=== PATIENT | female | born 1955 | race Caucasian/White ===

== ENCOUNTER 2016-05-30 06:45 | Emergency (ER) | payer OTHER | END 2016-05-30 09:06 | disposition home or self-care (01) | DX: R35.0 Frequency of micturition (principal); N95.2 Postmenopausal atrophic vaginitis; I48.91 Unspecified atrial fibrillation; Z79.01 Long term (current) use of anticoagulants; E78.00 Pure hypercholesterolemia, unspecified; I10 Essential (primary) hypertension; E03.9 Hypothyroidism, unspecified ==

== ENCOUNTER 2016-09-26 19:36 | Emergency (ER) | payer OTHER ==
--- NOTE | 2016-09-26 20:22 | ED Physician Documentation ---
PD HPI ABD PAIN - Stated complaint Stated Complaint: STOMACH PX - Chief complaint Chief Complaint: Abd Pain - History obtained from History obtained from: Patient - History of Present Illness Timing - onset: Yesterday Timing - duration: Days (1) Timing - details: Gradual onset, Now resolved Quality: Sharp, Pain Location: RUQ, Epigastric Radiation: Upper back Improved by: Other (time) Worsened by: Eating Associated symptoms: Nausea, Constipation. No: Vomiting, Diarrhea, Dysuria, Chest pain Similar symptoms before: No diagnosis Recently seen: Clinic (The patient has been seen by her primary and she has been put on a low fat diet and has an ultrasound later this week.) - Additional information Additional information: 60 y/o female with intermittent epigastric and right upper quadrant pain in episodes lasting 6-8 hours had an episode last night that resolved overnight and returned this morning and she was preparing to come in to the ED and her pain has now resolved. Review of Systems Constitutional: denies: Fever, Chills, Fatigue Eyes: denies: Decreased vision Ears: denies: Ear pain Nose: reports: Congestion Throat: denies: Sore throat Cardiac: denies: Chest pain / pressure, Palpitations Respiratory: denies: Dyspnea, Cough GI: reports: Abdominal Pain, Nausea, Constipation. 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 - Present Medications Home Medications: Ambulatory Orders Medication Instructions Recorded Confirmed Warfarin [Coumadin] 5 mg PO DAILY 10/25/14 05/30/16 [place]-3 Fatty Acids [Fish Oil] 850 mg PO DAILY 04/21/15 09/26/16 Vitamin E 400 unit PO DAILY 04/21/15 09/26/16 traZODone [Desyrel] 50 mg PO QPM 04/21/15 05/30/16 Atorvastatin [Lipitor] 20 mg PO QPM 05/30/16 09/26/16 Calcium Carbonate/Vitamin D3 1 each PO DAILY 05/30/16 09/26/16 [Calcium 500 + Vit D Caplet] Esomeprazole Magnesium [Nexium] 20 mg PO 05/30/16 HYDROcod/ACETAM 5/325 [[place] 5/325] 1 - 2 ea PO Q6H PRN 05/30/16 09/26/16 Levothyroxine Sodium 137 mcg PO DAILY 05/30/16 09/26/16 Metoprolol Succinate [Toprol Xl] 50 mg PO BID 05/30/16 09/26/16 Cetirizine [ZyrTEC] 10 mg PO DAILY 09/26/16 09/26/16 Losartan [Cozaar] 50 mg PO DAILY 09/26/16 09/26/16 - Allergies Allergies/Adverse Reactions: Allergies Allergy/AdvReac Type Severity Reaction Status Date / Time No Known Drug Allergies Allergy Verified 12/01/15 12:47 - Social History Does the pt smoke?: No Smoking Status: Unknown if ever smoked Does the pt drink ETOH?: No Does the pt have substance abuse?: No - Immunizations Immunizations are current?: Yes - POLST Patient has POLST: No PD ED PE NORMAL - Vitals Vital signs reviewed: Yes (hypertensive ) - General General: Alert and oriented X 3, No acute distress, Well developed/nourished - HEENT HEENT: Atraumatic, PERRL, EOMI - Neck Neck: Supple, no meningeal sign - Cardiac Cardiac: RRR, No murmur - Respiratory Respiratory: No respiratory distress, Clear bilaterally - Abdomen Abdomen: Soft, Non tender - Back Back: No CVA TTP, No spinal TTP - Derm Derm: Normal color, No rash - Extremities Extremities: No deformity, No edema - Neuro Neuro: Alert and oriented X 3, No motor deficit, No sensory deficit, Normal speech - Psych Psych: Normal mood, Normal affect Results - Vitals Vitals: Vital Signs - 24 hr 09/26/16 09/26/16 09/26/16 19:39 21:07 22:40 Temperature 36.6 C Heart Rate 83 79 72 Respiratory 18 16 16 Rate Blood Pressure 142/86 H 131/84 H 135/60 H O2 Saturation 97 96 98 Oxygen O2 Source Room air - Labs Labs: Laboratory Tests 09/26/16 09/26/16 09/26/16 20:20 20:20 20:20 WBC 5.4 RBC 4.15 L Hgb 11.4 L Hct 34.8 L MCV 83.8 MCH 27.5 MCHC 32.8 RDW 15.7 H Plt Count 300 MPV 7.6 L Neut # 2.3 Lymph # 2.3 [place] # 0.5 Eos # 0.2 Baso # 0.1 Absolute Nucleated RBC 0.00 Nucleated RBCs 0.1 PT 29.9 H INR 2.6 H Sodium 140 Potassium 4.5 Chloride 108 Carbon Dioxide 27 Anion Gap 5.0 L BUN 10 Creatinine 0.6 Estimated GFR (MDRD) 102 Glucose 93 Calcium 9.1 Total Bilirubin 0.5 AST 18 ALT 15 Alkaline Phosphatase 70 Troponin I Total Protein 7.0 Albumin 3.9 Globulin 3.1 Albumin/Globulin Ratio 1.3 Lipase 44 Urine Color Urine Clarity Urine pH Ur Specific [place] Urine Protein Urine Glucose (UA) Urine Ketones Urine Occult Blood Urine Nitrite Urine Bilirubin Urine Urobilinogen Ur Leukocyte Esterase Urine RBC Urine WBC Ur Squamous Epith Cells Urine Bacteria Ur Microscopic Review Urine Culture Comments 09/26/16 09/26/16 20:20 20:22 WBC RBC Hgb Hct MCV MCH MCHC RDW Plt Count MPV Neut # Lymph # [place] # Eos # Baso # Absolute Nucleated RBC Nucleated RBCs PT INR Sodium Potassium Chloride Carbon Dioxide Anion Gap BUN Creatinine Estimated GFR (MDRD) Glucose Calcium Total Bilirubin AST ALT Alkaline Phosphatase Troponin I < 0.04 Total Protein Albumin Globulin Albumin/Globulin Ratio Lipase Urine Color YELLOW Urine Clarity HAZY Urine pH 6.5 Ur Specific [place] 1.010 Urine Protein NEGATIVE Urine Glucose (UA) NEGATIVE Urine Ketones NEGATIVE Urine Occult Blood NEGATIVE Urine Nitrite NEGATIVE Urine Bilirubin NEGATIVE Urine Urobilinogen 0.2 (NORMAL) Ur Leukocyte Esterase SMALL H Urine RBC 0-5 Urine WBC 4-5 Ur Squamous Epith Cells RARE Squamous Urine Bacteria Few Ur Microscopic Review INDICATED Urine Culture Comments INDICATED - Rads (name of study) gb ultrasound Radiology: Prelim report reviewed (Impression: negative right upper quadrant ultrasound. ), EMP read indepedently, See rad report PD MEDICAL DECISION MAKING - ED course Complexity details: reviewed old records, reviewed results, re-evaluated patient , considered differential, d/w patient ED course: 60 y/o female with typical gallbladder symptoms has resolved this episode and has a non-tender gallbladder without evidence of stone. (there may be a small polyp). The remainder of her work up is unremarkable, no sign of obstruction or inflammation, and she will follow up with Dr. Ocampo for a referral for HIDA scan. Departure - Departure Disposition: 01 Home, Self Care Clinical Impression: Gallbladder attack Condition: Stable Instructions: Scan HIDA Follow-Up: Sylvie Ocampo DO [Primary Care Provider] - Comments: Today your gallbladder ultrasound did not show typical stones. Your symptoms are consistent with gallbladder disease and a follow up HIDA scan should be considered. Follow up with Dr. Ocampo to schedule this. Discharge Date/Time: 09/26/16 22:40
[2016-09-26 20:28] LABS: BILIRUBIN,URINE NEGATIVE (NEGATIVE); PH,URINE 6.5 PH (5.0-7.5)
[2016-09-26 20:32] LABS: UA w/ MICROSCOPIC CHARGE YES
[2016-09-26 20:41] LABS: BASOPHILS # (AUTO) 0.1 10^3/uL (0.0-0.1); BASOPHILS % (AUTO) 1.8 %; EOSINOPHILS # (AUTO) 0.2 10^3/uL (0.0-0.7); EOSINOPHILS % (AUTO) 3.8 %; HCT - HEMATOCRIT 34.8 % (37.0-47.0); HGB - HEMOGLOBIN 11.4 g/dL (12.0-16.0); LYMPHOCYTES # (AUTO) 2.3 10^3/uL (1.5-3.5); LYMPHOCYTES % (AUTO) 42.6 %; MEAN CORPUSCULAR HEMOGLOBIN 27.5 pg (27.0-31.0); MEAN CORPUSCULAR HGB CONC 32.8 g/dL (32.0-36.0); MEAN CORPUSCULAR VOLUME 83.8 fL (81.0-99.0); MEAN PLATELET VOLUME 7.6 fL (7.9-10.8); MONOCYTES # (AUTO) 0.5 10^3/uL (0.0-1.0); MONOCYTES % (AUTO) 8.4 %; NEUTROPHILS # (AUTO) 2.3 10^3/uL (1.5-6.6); NEUTROPHILS % (AUTO) 43.4 %; NUCLEATED RED BLOOD CELLS AUTO 0.1 /100WBC; RED BLOOD COUNT 4.15 10^6/uL (4.20-5.40); RED CELL DISTRIBUTION WIDTH 15.7 % (12.0-15.0); UNCORRECTED WHITE BLOOD COUNT 5.4 x10^3/uL; WHITE BLOOD COUNT 5.4 x10^3/uL (4.8-10.8)
[2016-09-26 20:51] LABS: ALBUMIN/GLOBULIN RATIO 1.3 (1.0-2.2); BILIRUBIN,TOTAL 0.5 mg/dL (0.2-1.0); CALCIUM 9.1 mg/dL (8.5-10.3); CREATININE 0.6 mg/dL (0.4-1.0); POTASSIUM 4.5 mmol/L (3.5-5.0)
[2016-09-26 20:52] LABS: UR CULTURE IF IND INDICATED
[2016-09-26 20:55] LABS: INR 2.6 (0.8-1.2); PT - PROTHROMBIN TIME 29.9 secs (9.9-12.6)
--- NOTE | 2016-09-26 22:22 | Ultrasound Preliminary Report ---
Exam: US Abdomen Limited IMPRESSION: Negative right upper quadrant ultrasound. [facility] SITE ID: [id number]
--- NOTE | 2016-09-26 22:24 | Ultrasound Report ---
EXAM: ABDOMEN ULTRASOUND LIMITED, RUQ EXAM DATE: 09/26/2016 09:58 PM. CLINICAL HISTORY: RUQ pain episodes. COMPARISON: None. TECHNIQUE: Real-time scanning was performed with static images obtained. FINDINGS: Liver: Submitted images of liver demonstrate no focal lesions. Main portal vein flow: Hepatopetal. Gallbladder: No stones, wall thickening, or sonographic Espinoza's sign. There may be a small gallbladd er wall polyp. Biliary System: CBD measures 4 mm. No intrahepatic or extrahepatic ductal dilatation. Other: The visualized pancreas and right kidney are unremarkable. IMPRESSION: Negative right upper quadrant ultrasound. [facility] Referring Provider Line: [phone] SITE ID: [id number]
[2016-09-26 22:41] VITALS: BP 135/60
== END 2016-09-26 22:40 | disposition home or self-care (01) ==
LOC: ED 19:36
DX: K82.9 Disease of gallbladder, unspecified (principal); R11.0 Nausea; K59.00 Constipation, unspecified; I10 Essential (primary) hypertension; I48.91 Unspecified atrial fibrillation; Z79.01 Long term (current) use of anticoagulants; E03.9 Hypothyroidism, unspecified
CPT/HCPCS: 36415; 76705; 80053; 81001; 81003; 83690; 84484; 85025; 85610; 87086; 99283; 99284

== ENCOUNTER 2017-12-04 22:04 | Emergency (ER) | payer OTHER ==
[2017-12-04 23:02] LABS: BILIRUBIN,URINE NEGATIVE (NEGATIVE); GLUCOSE, URINE (UA) NEGATIVE (NEGATIVE); KETONES,URINE (UA) 15 mg/dL (NEGATIVE); LEUKOCYTE ESTERASE, URINE MODERATE (NEGATIVE); NITRITE,URINE POSITIVE (NEGATIVE); OCCULT BLOOD,URINE LARGE (NEGATIVE); PROTEIN,URINE >=300 mg/dL (NEGATIVE); UROBILINOGEN,URINE 4 E.U./dL (NORMAL)
[2017-12-04 23:05] LABS: CLARITY,URINE BLOODY (CLEAR)
[2017-12-04 23:06] LABS: BACTERIA,URINE Few /HPF (None Seen); RBC,URINE TNTC /HPF (0-5); SQUAMOUS EPITHELIAL CELL,UR FEW Squamous (<= Few)
--- NOTE | 2017-12-04 23:13 | ED Physician Documentation ---
History of Present Illness - Stated complaint Stated Complaint: FEMALE - Chief complaint Chief Complaint: General - History obtained from History obtained from: Patient - Additonal information Additional information: 62-year-old female presents the emergency department with increasing dysuria and hematuria with frequency and suprapubic pain. The patient does have prior episodes of urinary tract infections and this is similar to those episodes. The patient denies fevers, chills, flank pain. The patient does report pain in her lower back but typically has lower back pain. The patient denies vomiting, diarrhea, chest pain, shortness of breath or vaginal discharge. No other associated symptoms. No relieving factors Review of Systems Constitutional: denies: Fever, Chills Eyes: denies: Discharge Nose: denies: Congestion Cardiac: denies: Chest pain / pressure Respiratory: denies: Dyspnea GI: denies: Abdominal Pain : reports: Dysuria, Frequency, Hematuria Skin: denies: Laceration (s) Musculoskeletal: denies: Neck pain Neurologic: denies: Generalized weakness Immunocompromised: denies: Chemotherapy PD PAST MEDICAL HISTORY - Past Medical History Cardiovascular: Hypertension, High cholesterol, Atrial fibrillation Endocrine/Autoimmune: HyPOthyroidism, Other : Frequency, Other HEENT: Chronic vision loss Musculoskeletal: Osteoarthritis - Past Surgical History Past Surgical History: Yes 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 - Present Medications Home Medications: Ambulatory Orders Medication Instructions Recorded Confirmed Warfarin [Coumadin] 5 mg PO DAILY 10/25/14 05/30/16 [place]-3 Fatty Acids [Fish Oil] 850 mg PO DAILY 04/21/15 09/26/16 Vitamin E 400 unit PO DAILY 04/21/15 09/26/16 Atorvastatin [Lipitor] 20 mg PO QPM 05/30/16 09/26/16 Calcium Carbonate/Vitamin D3 1 each PO DAILY 05/30/16 09/26/16 [Calcium 500 + Vit D Caplet] Levothyroxine Sodium 137 mcg PO DAILY 05/30/16 09/26/16 Metoprolol Succinate [Toprol Xl] 100 mg PO BID 05/30/16 09/26/16 Cetirizine [ZyrTEC] 10 mg PO DAILY 09/26/16 09/26/16 Losartan [Cozaar] 50 mg PO DAILY 09/26/16 09/26/16 Cephalexin [Keflex] 500 mg PO BID #14 capsule 12/04/17 Pantoprazole Sodium [Protonix] 40 mg PO 12/04/17 - Allergies Allergies/Adverse Reactions: Allergies Allergy/AdvReac Type Severity Reaction Status Date / Time No Known Drug Allergies Allergy Verified 12/04/17 22:16 - Social History Does the pt smoke?: No Smoking Status: Unknown if ever smoked Does the pt drink ETOH?: No Does the pt have substance abuse?: No - Immunizations Immunizations are current?: Yes - POLST Patient has POLST: No PD ED PE NORMAL - General General: Alert and oriented X 3, No acute distress, Well developed/nourished - HEENT HEENT: Atraumatic, PERRL, EOMI, Ears normal - Abdomen Abdomen: Soft, Non tender, Non distended - Back Back: No CVA TTP - Derm Derm: Normal color - Extremities Extremities: No deformity - Neuro Neuro: Alert and oriented X 3, Normal speech - Psych Psych: Normal mood Results - Vitals Vitals: Vital Signs - 24 hr 12/04/17 12/05/17 22:14 00:05 Temperature 36.3 C L Heart Rate 52 L 56 L Respiratory 16 16 Rate Blood Pressure 145/83 H 139/76 H O2 Saturation 95 99 Oxygen O2 Source Room air - Labs Labs: Laboratory Tests 12/04/17 12/04/17 22:43 23:30 PT 22.1 H INR 2.0 H APTT 31.0 Urine Color RED/BLOODY Urine Clarity BLOODY Urine pH 7.0 Ur Specific [place] 1.010 Urine Protein >=300 H Urine Glucose (UA) NEGATIVE Urine Ketones 15 H Urine Occult Blood LARGE H Urine Nitrite POSITIVE H Urine Bilirubin NEGATIVE Urine Urobilinogen 4 H Ur Leukocyte Esterase MODERATE H Urine RBC TNTC H Urine WBC 6-10 H Ur Squamous Epith Cells FEW Squamous Urine Bacteria Few Ur Microscopic Review INDICATED Urine Culture Comments INDICATED Urine HCG, Qual Cancelled PD MEDICAL DECISION MAKING - ED course ED course: The patient appears appropriate for discharge home in ongoing outpatient management, there is no evidence of pyelonephritis or sepsis on physical examination. The patient is on Coumadin. I discussed with her the possibility of her INR being elevated. The patient is aware of this and reports that she will follow up with her Coumadin clinic nurse in the next 3 days for an INR recheck. I discussed signs of worsening I recommended returning to the emergency department immediately for any worsening or concerns. - Sepsis Event Vital Signs: Vital Signs - 24 hr 12/04/17 12/05/17 22:14 00:05 Temperature 36.3 C L Heart Rate 52 L 56 L Respiratory 16 16 Rate Blood Pressure 145/83 H 139/76 H O2 Saturation 95 99 Oxygen O2 Source Room air Departure - Departure Disposition: 01 Home, Self Care Clinical Impression: Acute cystitis with hematuria Condition: Good Instructions: ED UTI Cystitis Female Follow-Up: SHAYNA ZAMBRANO MD [Primary Care Provider] - Within 1 week Prescriptions: Cephalexin [Keflex] 500 mg PO BID #14 capsule Comments: Please return to the ED for worsening symptoms or any concerns Discharge Date/Time: 12/05/17 00:05
[2017-12-04] MEDS: cephALEXin 250 MG CAPSULE PO STA (23:19)
[2017-12-04 23:41] LABS: PT - PROTHROMBIN TIME 22.1 secs (9.9-12.6)
[2017-12-05 00:18] VITALS: BP 139/76
== END 2017-12-05 00:05 | disposition home or self-care (01) ==
LOC: ED 22:04
DX: N30.01 Acute cystitis with hematuria (principal); I10 Essential (primary) hypertension; I48.91 Unspecified atrial fibrillation; Z79.01 Long term (current) use of anticoagulants; M19.90 Unspecified osteoarthritis, unspecified site
CPT/HCPCS: 36415; 81001; 85610; 85730; 87086; 99283; A9270; 81003; 81025

== ENCOUNTER 2017-12-12 13:59 | Outpatient (CLI) | payer OTHER | END 2017-12-12 14:00 | disposition home or self-care (01) | LOC: SC 13:59 | PROVIDERS: ATTEND Internal Medicine Pulmonary Disease | DX: G47.30 Sleep apnea, unspecified (principal); G47.10 Hypersomnia, unspecified; R06.83 Snoring; G47.8 Other sleep disorders | CPT/HCPCS: 99203; 99212 ==

== ENCOUNTER 2017-12-31 07:46 | Outpatient (CLI) | payer OTHER ==
--- NOTE | 2017-12-31 13:58 | MRI Report ---
Procedure Date: 12/31/2017 Accession Number: [id number] / [id number] Procedure: MRI - Lumbar Spine W/O CPT Code: FULL RESULT: EXAM: MRI LUMBAR SPINE WITHOUT CONTRAST EXAM DATE: 12/31/2017 08:51 AM. CLINICAL HISTORY: Low back pain post hip surgery. COMPARISON: None. TECHNIQUE: Multiplanar, multisequence T1-weighted and fluid-sensitive sequences of the lumbar spine from T12 to S1 without contrast. Other: None. FINDINGS: Spinal Canal: The conus terminates at L1-L2. The conus medullaris and cauda equina are unremarkable. Alignment: There is a focal flexion deformity at L1-L2. There is a 22 degree dextroscoliosis at L2-L3. Bone Marrow: Five [id number] lumbar vertebral bodies are assumed. There is Modic type I change at the L1-L2 and T12-L1 endplates. There is mild Modic type I and II change at the L4-L5 endplates. Disk Levels/Facets: T12-L1: There are circumferential osteophytes causing mild canal and foraminal narrowing. L1-L2: Severe disk desiccation and loss of disk height. There are circumferential osteophytes. There is mild facet joint osteoarthritis. The findings cause mild canal narrowing and moderate bilateral foraminal narrowing. L2-L3: There is severe disk desiccation with circumferential osteophyte formation causing minimal canal narrowing. There is moderate left foraminal narrowing. L3-L4: There is disk desiccation and loss of disk height. There are circumferential osteophytes with mild facet joint osteoarthritis and ligamentum flavum redundancy causing mild canal narrowing. There is moderate right and left foraminal narrowing. A facet joint osteophyte anteriorly displaces the left L3 nerve root. L4-L5: There is disk desiccation and loss of disk height. There are circumferential osteophytes with moderate facet joint osteoarthritis and ligamentum flavum redundancy causing mild canal narrowing. There is moderate bilateral foraminal narrowing. Osteophytes superiorly displaced the right L4 nerve root within the foramen. L5-S1: There is a central disk extrusion which extends into the right neural foramen. There is moderate bilateral facet joint osteoarthritis. The findings cause mild canal narrowing. The right L5 nerve root is contacted by disk within the neural foramen. Musculature: Normal. No edema or fatty atrophy. Other: The partially visualized retroperitoneum is unremarkable. IMPRESSION: 1. There is a flexion deformity at L1-L2, and a 22-degree dextroscoliosis at L2-L3. 2. Multilevel disk and facet joint degeneration with foraminal narrowing. 3. L2-L3: Minimal canal narrowing. Moderate left foraminal narrowing. 4. L3-L4: Moderate right and left foraminal narrowing. An osteophyte appears to contact the left L3 nerve root. Mild canal narrowing. 5. L4-L5: Moderate bilateral foraminal narrowing. Osteophytes superiorly displace the right L4 nerve root within the foramen. There is mild canal narrowing. 6. L5-S1: Mild canal narrowing. Right L5 nerve root contacted by disk within the neural foramen. Comment: The following findings are so common in adults without low back pain that while we report their presence, they must be interpreted with caution and in the context of the clinical situation. (Reference Nohemik et al, Spine 2001) Prevalence of findings in patients without low back pain: Disk degeneration (any evidence): 92% Disk desiccation/T2 signal loss: 83% Disk height loss: 56% Disk bulge: 64% Disk protrusion: 32% Annular tear/high intensity zone: 38% [facility]
== END 2017-12-31 07:47 | disposition home or self-care (01) ==
LOC: DI 07:46
PROVIDERS: ATTEND Internal Medicine
DX: M51.36 Other intervertebral disc degeneration, lumbar region (principal); M48.061 Spinal stenosis, lumbar region without neurogenic claudication; M41.86 Other forms of scoliosis, lumbar region; M25.78 Osteophyte, vertebrae
CPT/HCPCS: 72148

== ENCOUNTER 2018-01-27 19:34 | Outpatient (CLI) | payer OTHER | END 2018-01-27 19:35 | disposition home or self-care (01) | LOC: SC 19:34 | PROVIDERS: ATTEND Internal Medicine Pulmonary Disease | DX: G47.33 Obstructive sleep apnea (adult) (pediatric) (principal); I48.91 Unspecified atrial fibrillation | CPT/HCPCS: 95810 ==

== ENCOUNTER 2018-03-08 14:00 | Outpatient (CLI) | payer OTHER | END 2018-03-08 14:01 | disposition home or self-care (01) | LOC: SC 14:00 | PROVIDERS: ATTEND Nurse Practitioner Family | DX: G47.33 Obstructive sleep apnea (adult) (pediatric) (principal) | CPT/HCPCS: 99212; 99214 ==

== ENCOUNTER 2018-03-20 16:33 | Outpatient (CLI) | payer OTHER ==
--- NOTE | 2018-03-21 13:57 | MRI Report ---
Reason: POLYNEUROPATHY,UNSPECIFIED Procedure Date: 03/20/2018 Accession Number: [id number] / [id number] Procedure: MRI - Ankle RT W/O CPT Code: FULL RESULT: EXAM: RIGHT ANKLE/HINDFOOT MRI WITHOUT CONTRAST EXAM DATE: 03/20/2018 05:16 PM. CLINICAL HISTORY: Polyneuropathy, unspecified. COMPARISON: None. TECHNIQUE: Multiplanar, multisequence T1-weighted and fluid-sensitive sequences of the ankle/hindfoot without contrast. Other: None. FINDINGS: Bones: No fractures or subluxations. No marrow edema. No bone lesions. Articular Cartilage: Unremarkable. Ligaments: The anterior and posterior tibiofibular, anterior and posterior talofibular, and calcaneofibular ligaments are intact. The deep and superficial deltoid and spring ligaments are intact. Anterior Tendons: The tibialis anterior, extensor hallucis longus, and extensor digitorum longus tendons are unremarkable. In particular, MRI marker has been placed over the dorsal aspect of the ankle, located anterior to the anterior tibialis and the extensor hallucis longus tendon. No tenosynovitis or tendinitis is noted. No adjacent soft tissue swelling. Medial Tendons: The tibialis posterior, flexor digitorum longus, and flexor hallucis longus tendons are unremarkable. Lateral Tendons: The peroneus brevis and longus are unremarkable. Achilles Tendon: Achilles tendon per se is unremarkable. There is some edematous changes seen in the fat anterior to the Achilles tendon on series 501 image 15. Musculature: No edema or fatty atrophy. Other: No effusions. The contents of the sinus tarsi and tarsal tunnel are unremarkable. No plantar fasciitis. The subcutaneous tissues are unremarkable. IMPRESSION: 1. No fractures, no erosive or destructive changes. 2. Tendinitis is seen around the Achilles anteriorly. Achilles tendon per se is normal. 3. No abnormality seen and the extensor hallucis longus and tibialis anterior tendons, immediately adjacent to the MRI marker placed at the area of the patient's pain. 4. Collateral ligament complexes appear normal. [facility] MUSCULOSKELETAL RADIOLOGY SECTION
== END 2018-03-20 16:34 | disposition home or self-care (01) ==
LOC: DI 16:33
PROVIDERS: ATTEND Internal Medicine
DX: G62.9 Polyneuropathy, unspecified (principal); M76.61 Achilles tendinitis, right leg

== ENCOUNTER 2018-11-13 14:51 | Outpatient (CLI) | payer OTHER | END 2018-11-13 14:52 | disposition home or self-care (01) | LOC: SC 14:51 | PROVIDERS: ATTEND Nurse Practitioner Family | DX: G47.33 Obstructive sleep apnea (adult) (pediatric) (principal) | CPT/HCPCS: 99212; 99214 ==

== ENCOUNTER 2018-12-22 20:34 | Outpatient (CLI) | payer OTHER | END 2018-12-22 20:35 | disposition home or self-care (01) | LOC: SC 20:34 | PROVIDERS: ATTEND Internal Medicine Pulmonary Disease | DX: G47.33 Obstructive sleep apnea (adult) (pediatric) (principal); I48.91 Unspecified atrial fibrillation; E66.9 Obesity, unspecified; Z68.31 Body mass index [BMI] 31.0-31.9, adult | CPT/HCPCS: 95810 ==

== ENCOUNTER 2019-01-04 10:50 | Outpatient (CLI) | payer OTHER ==
[2019-01-04 11:51] VITALS: BP 112/78
--- NOTE | 2019-01-04 11:51 | SLEEP CARE CONSULTATION ---
Information from patient questionnaire entered by Carola Vásquez. I have reviewed and concur with the information entered by Carola Vásquez. This document represents the service I personally performed and the decisions made by me, Spring Johnson RN, MSN, WATER POLLUTION SPECIALIST. History of Present Illness Initial [place] Sleepiness Scale score: 6 Current [place] Sleepiness Scale score: 5 Additional HPI information: KAYLEIGH QUIGLEY returns for follow up of the recently performed polysomnography. The patient was informed of the following polysomnography findings found in study section. I explained the pathophysiology behind obstructive sleep apnea. We then spent quite a bit of time discussing different treatment options. For mild obstructive sleep apnea, surgery and oral appliance are alternatives to nasal CPAP therapy but in moderate or severe cases, nasal CPAP is the most effective and reliable treatment. I reviewed the impact of weight changes on sleep apnea and strongly recommended losing weight. After some discussion, the patient opted to go with the nasal CPAP therapy. Nasal autoCPAP set at [id number] will be ordered with rationale explained. A manual titration study will be ordered if unable to find optimal pressure with office adjustments. I explained how CPAP machine works with sample devices RespirPacket Digital Dreamstation and LightUp [id number] and what to expect when using the machine. Using CPAP every night in order to get used to it was emphasized. Patient advised to put CPAP mask on before getting into bed so as not to fall asleep without CPAP. To assist acclimation to CPAP use, it could also be used for a short time during day while reading or watching TV. The patient was instructed to call the CPAP supplier to discuss any mechanical problem that may occur. If the mask given is uncomfortable or is difficult to keep on through the night even with adjustment, contact the CPAP supplier as many will replace with another mask style if notified before 30 days. If snoring or perceives is not getting enough air or too much air from the machine, notify this office. [facility] patient education PAP tips reviewed and given to patient. Patient counseled not drink alcohol less than 4 hours before bedtime as it can increase snoring and apnea. Patient was cautioned about risks of drowsy driving until sleepiness symptoms resolve. Patient denies drowsy driving. Sleep Study - Polysomnography Polysomnography findings: The quality of the study is good. The patient had slightly reduced sleep efficiency a few prolonged awakenings during the night. The sleep architecture was abnormal for sleep fragmentation and reduced amount of time spent in slow wave sleep (N3). Respiratory monitoring showed severe obstructive sleep apnea-hypopnea (AHI = 58.4) associated with frequent arousals, oxyhemoglobin desaturation and mild hypoxia ([place] oxygen saturation of 81%). The respiratory events occurred independently of sleep stage and body position. (supine AHI = 62.3; nonsupine = 53.15). Snore was moderate to loud in intensity. There was no periodic leg movement of sleep. Cardiac rhythm was atrial fibrillation. No abnormal behavior (parasomnia) observed during the night. Allergies and Home Medications Known drug allergies: No Home medication list reviewed: Yes Allergy and home medication list: Synthroid 137mcg tab one daily Atorvastatin 20mg tab one daily Metoprolol 100mg tab two twice daily Warfarin 5.5mg tab one daily Losartan Potassium 25mg tab one twice daily Lexapro 10mg tab one daily Protonix 40mg tab one daily Zyrtec 10mg tab one daily Melatonin 6mg tab one daily Turmeric Tab one daily Review of Systems Review of systems same as previous: Yes (denies any changes) Physical Exam Blood Pressure: 112/78 Cuff size: long Heart Rate: 93 O2 Saturation: 99 Height: 5 ft 9 in Weight (kg): 106.322 kg Body Mass Index: 34.6 BMI Classification: Class 1 Impression and Plan 1. Obstructive Sleep Apnea-Hypopnea Syndrome, severe, with lowest oxygen saturation of 81%. Obviously this is the cause of the patients symptoms of unrefreshed sleep, and excessive daytime sleepiness. Positive pressure therapy could benefit her atrial fibrillation, hypertension, depression and gerd. As mentioned above, the patient will be started on nasal autoCPAP therapy with pressure set at 4-15 cmH2O. A manual titration study will be completed if unable to find optimal treatment pressure with office adjustments. Compliance guidelines also reviewed. A copy of compliance guidelines will be given for reference at check out. Until CPAP is started some apnea risk can be reduced with sleeping with head of bed elevated 30-40 degrees. 2. Atrial fibrillation, patient currently sees gas jockey Dr. Randolph, at [facility] for treatment. Copies of tracings printed by Dr. Gallego will be sent with a copy of this report as requested by patient. * Nasal auto CPAP therapy, pressure at 4-15 cm H2O. * Attempt to lose weight. * Avoid alcohol consumption near bedtime. * The patient is again cautioned about driving until sleepiness completely resolves. * Copy of this report and arrhythmia tracings to Dr. Randolph. * Return one month after CPAP obtained. I will assess response to therapy and compliance at that time. I spent 100% of this 30 minute visit face to face with the patient with greater than 50% of this was spent time counseling the patient and coordination of care.
== END 2019-01-04 10:51 | disposition home or self-care (01) ==
LOC: SC 10:50
PROVIDERS: ATTEND Nurse Practitioner Family
DX: G47.33 Obstructive sleep apnea (adult) (pediatric) (principal); I48.91 Unspecified atrial fibrillation
CPT/HCPCS: 99212; 99214

== ENCOUNTER 2019-03-26 15:30 | Outpatient (CLI) | payer OTHER ==
[2019-03-26 16:12] VITALS: BP 122/80
--- NOTE | 2019-03-26 16:12 | SLEEP CARE CONSULTATION ---
Information from patient questionnaire entered by Carola Vásquez. I have reviewed and concur with the information entered by Carola Vásquez. This document represents the service I personally performed and the decisions made by me, Spring Johnson, RN, MSN, COBBLER SOLE. History of Present Illness Previous diagnosis: Moderate, Obstructive Sleep Apnea-Hypopnea Syndrome AHI: 28.2 Reason for follow up: first compliance Equipment type: CPAP Equipment obtained from: [employer] Mask style: Full face Mask brand: Resmed (F20 air fit) Backup mask available: No (keep current mask when replaced as a spare) Last cushion change: a month ago CPAP Compliance Data - Data Reviewed with Patient Average duration of nightly device use: 5.1 Compliance rate %: 76.7 Current pressure setting (cmH2O): 4-15 Humidity settin Heated hose settin Average residual AHI: 3.4 Average large leak: 1 min 26 sec Subjective Patient concerns: reports: nasal congestion (chronic and less with CPAP use ), dry mouth, nose, throat (occasional weekly ). denies: aerophagia, mask discomfort, air blowing in eyes, mask leak noise, condensation in mask/hose, epistaxis Observed to snore while using device: No Current pressure setting perceived as: comfortable On therapy, patient: reports: sleeping better, awakening more refreshed, being more awake and alert during the day, more rested overall. denies: drowsiness while driving Initial [place] Sleepiness Scale score: 6 Current [place] Sleepiness Scale score: 3 Allergies and Home Medications Known drug allergies: No Home medication list reviewed: Yes Allergy and home medication list: Synthroid 137mcg tab one daily Atorvastatin 20mg tab one daily Metoprolol 100mg tab two twice daily eliquis bid Losartan Potassium 25mg tab one twice daily Protonix 40mg tab one daily Zyrtec 10mg tab one daily Melatonin 6mg tab one daily Turmeric Tab one daily Review of Systems Review of systems same as previous: Yes Physical Exam Blood Pressure: 122/80 Cuff size: long Heart Rate: 86 O2 Saturation: 97 Height: 5 ft 9 in Weight: 238 lb 12.8 oz Body Mass Index: 35.2 BMI Classification: Obesity Class 2 Impression and Plan 1. Obstructive Sleep Apnea-Hypopnea Syndrome, severe, with good treatment compliance and good apnea control. On CPAP therapy, the patient has better sl eep quality and is more rested overall. I will adjust her pressure to start at the mean pressure of 9cmH20 to [id number]. She is hoping to lose about 50 pounds. Thus I discussed how her weight loss will reduce her pressure requirements and symptoms to report. For oral dryness, I showed her how to adjust humidity and heated hose on sample device and discussed rationale. Printed instructions given. She is pulling off mask in late morning to take her thyroid pill. Thus she is advised to put her mask back on as there is more REM in later sleep with higher risk of apnea. In addition, maximum benefit is obtained with use of CPAP with all sleep. The next goal is to have 7-8 hours of sleep with CPAP. Patient's apnea severity and rationale for treatment to reduce apnea, improve sleep quality and reduce cardiovascular and cerebrovascular events was reviewed. I also reviewed the benefit of consistent device use of CPAP for her hypertension, arrhythmia, depression/anxiety. If unable to use CPAP due to no electricity or ill, she is advised to elevate head of bed 30-40 degrees to decrease some apnea risk. * Change CPAP pressure to 9-15 cmH2O * Adjust humidity and heated hose. * Use CPAP with all sleep. * Notify me if snoring with mask or feeling that the pressure is too much or too little * Attempt to lose weight * Return for follow up in 6 months , or sooner if concerns arise I spent 100% of this 30 minute visit face to face with the patient with greater than 50% of this was spent time counseling the patient and coordination of care.
== END 2019-03-26 15:31 | disposition home or self-care (01) ==
LOC: SC 15:30
PROVIDERS: ATTEND Nurse Practitioner Family
DX: G47.33 Obstructive sleep apnea (adult) (pediatric) (principal); E66.9 Obesity, unspecified; Z68.35 Body mass index [BMI] 35.0-35.9, adult
CPT/HCPCS: 99212; 99214

== ENCOUNTER 2019-11-29 14:31 | Outpatient (CLI) | payer OTHER ==
--- NOTE | 2019-11-29 15:35 | SLEEP CARE CONSULTATION ---
Information from patient questionnaire entered by Arely Chao. I have reviewed and concur with the information entered by Arely Chao. This document represents the service I personally performed and the decisions made by me, Spring Johnson, RN, MSN, LAUNDROMAT MANAGER. History of Present Illness Service Date and Time: 11/29/2019 1431 Previous diagnosis: Moderate, Obstructive Sleep Apnea-Hypopnea Syndrome AHI: 28.2 Reason for follow up: other (8 month with pressure change) Equipment type: CPAP Equipment obtained from: [employer] (getting supplies as needed.) Mask style: Full face Backup mask available: Yes (old mask ) Last cushion change: last month [facility] sleep [facility]: Yes [facility] Type of Sleep Study: Polysomnography HPI additional information: The oral dryness resolved with adjustment of humidity. She noted no difference with pressure change. She has noted less fast heart rate episodes since CPAP. 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 denies: aerophagia, mask discomfort, air blowing in eyes, mask leak noise, condensation in mask/hose, dry mouth, nose, throat, epistaxis Observed to snore while using device: No Current pressure setting perceived as: comfortable On therapy, patient: reports: awakening more refreshed. denies: drowsiness while driving Initial [place] Sleepiness Scale score: 6 Current [place] Sleepiness Scale score: 5 Allergies and Home Medications Known drug allergies: No Home medication list reviewed: No (no changes ) Review of Systems Review of systems same as previous: Yes Physical Exam Blood Pressure: 120/90 Cuff size: long Heart Rate: 72 O2 Saturation: 98 Height: 5 ft 9 in Weight: 245 lb (gained 7 pounds ) Body Mass Index: 36.1 BMI Classification: Obese Impression and Plan 1. Obstructive Sleep Apnea-Hypopnea Syndrome, moderate, with good treatment compliance and apnea control. On CPAP therapy, the patient has better sleep quality and is more rested overall. Nasal congestion can be reduced with high CPAP humidity as already done. Saline nasal spray can also be used prior to CPAP to clear nasal secretions and wash off any nasal allergens to facilitate nasal breathing or she can use her [place] . In addition, a steamy shower before bed will often assist nasal drainage and wash off body allergens to reduce allergy response. To obtain maximum benefit of treatment she is advised to put mask back after the bathroom as there is more REM in later sleep with higher risk of apnea. Since patient has more severe apnea in supine position, patient advised to avoid supine sleep with pillow positioning if unable to use CPAP while ill or if without electricity to reduce apnea risk as well as raise head of bed 30-40 degrees. Patient gained instead of losing weight as she planned. I again reviewed how weight affects her apnea risk and health. She was advised to fazal tim to strive to lose weight and consider a diet consultation if unable to achieve. This referral can be obtained from her PCP. I also discussed how her CPAP pressure requirements will reduce with weight loss an symptoms to report for further pressure adjustment with weight loss. Patient's apnea severity and rationale for treatment to reduce apnea, improve sleep quality and reduce cardiovascular and cerebrovascular events was reviewed. I also reviewed the benefit of consistent device use of CPAP for hypertension, arrhythmia. * Continue auto CPAP pressure at 9-15 cmH2O * Implement methods to reduce nasal congestion. * Use CPAP with all sleep * Notify me if snoring with mask or feeling that the pressure is too much or too little * Attempt to lose weight * Call this office if any problems using CPAP * Return for follow up in 1 year , or sooner if concerns arise Visit Type: In Office Time Spent with Patient (minutes): 27 Provider Statement: I spent 100% of the Face to Face Visit with the patient with greater than 50% spent counseling the patient and coordination of care.
[2019-11-29 15:36] VITALS: BP 120/90
== END 2019-11-29 14:32 | disposition home or self-care (01) ==
LOC: SC 14:31
PROVIDERS: ATTEND Nurse Practitioner Family
DX: G47.33 Obstructive sleep apnea (adult) (pediatric) (principal); E66.9 Obesity, unspecified; Z68.36 Body mass index [BMI] 36.0-36.9, adult
CPT/HCPCS: 99212; 99214

== ENCOUNTER 2019-12-24 04:17 | Outpatient (CLI) | payer OTHER | END 2019-12-24 04:18 | disposition critical access hospital (66) | LOC: EMS 04:17 | PROVIDERS: ATTEND Surgery | DX: R45.1 Restlessness and agitation (principal); R03.0 Elevated blood-pressure reading, without diagnosis of hypertension | CPT/HCPCS: A0425; A0429 ==

== ENCOUNTER 2019-12-24 04:35 | Emergency (ER) | payer OTHER ==
[2019-12-24 05:13] LABS: BASOPHILS # (AUTO) 0.1 10^3/uL (0.0-0.1); EOSINOPHILS # (AUTO) 0.2 10^3/uL (0.0-0.7); EOSINOPHILS % (AUTO) 3.1 %; HGB - HEMOGLOBIN 13.5 g/dL (12.0-16.0); LYMPHOCYTES # (AUTO) 1.8 10^3/uL (1.5-3.5); LYMPHOCYTES % (AUTO) 30.6 %; MEAN CORPUSCULAR HEMOGLOBIN 30.8 pg (27.0-31.0); MEAN CORPUSCULAR HGB CONC 33.8 g/dL (32.0-36.0); MEAN CORPUSCULAR VOLUME 90.9 fL (81.0-99.0); MEAN PLATELET VOLUME 9.4 fL (7.9-10.8); MONOCYTES # (AUTO) 0.4 10^3/uL (0.0-1.0); MONOCYTES % (AUTO) 6.1 %; NEUTROPHILS # (AUTO) 3.4 10^3/uL (1.5-6.6); NEUTROPHILS % (AUTO) 58.9 %; PLT - PLATELET COUNT 254 10^3/uL (130-450); RED BLOOD COUNT 4.39 10^6/uL (4.20-5.40); RED CELL DISTRIBUTION WIDTH 13.1 % (12.0-15.0); WHITE BLOOD COUNT 5.7 x10^3/uL (4.8-10.8)
[2019-12-24] MEDS ORDERED: SODIUM CHLORIDE 0.9% 1,000 ML IV STA (05:28)
--- NOTE | 2019-12-24 05:31 | ED Physician Documentation ---
History of Present Illness - Stated complaint Stated Complaint: HIGH BP, INSOMINIA, AFIB - Chief complaint Chief Complaint: Cardiac - History obtained from History obtained from: Patient - History of Present Illness Timing: Today - Additonal information Additional information: 64-year-old female with a history of hypertension and atrial fibrillation had a night last night of agitation she was unable to sleep she developed some tingling in her left shoulder her blood pressure was elevated and she became more more concerned she eventually made her way to the emergency department for evaluation of elevated blood pressure. Her symptoms of tingling in the left arm resolved relatively rapidly. She does indicate that she has recently stopped drinking alcohol and stop drinking coffee. She is on a staycation for 2 weeks and she is due to go back to work today. Review of Systems Constitutional: denies: Fever Eyes: denies: Decreased vision Ears: denies: Ear pain Nose: denies: Congestion Throat: denies: Sore throat Cardiac: denies: Chest pain / pressure, Palpitations, Pedal edema, Calf pain Respiratory: denies: Dyspnea, Cough GI: denies: Abdominal Pain, Nausea, Vomiting, Constipation, Diarrhea : denies: Dysuria, Frequency Skin: denies: Rash Musculoskeletal: denies: Neck pain, Back pain, Extremity pain Neurologic: denies: Generalized weakness, Focal weakness, Numbness PD PAST MEDICAL HISTORY - Past Medical History Past Medical History: Yes Cardiovascular: Hypertension, High cholesterol, Atrial fibrillation Endocrine/Autoimmune: HyPOthyroidism, Other : Frequency, Other HEENT: Chronic vision loss Musculoskeletal: Osteoarthritis - Past Surgical History Past Surgical History: Yes 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 - Present Medications Home Medications: Ambulatory Orders Medication Instructions Recorded Confirmed [place]-3 Fatty Acids [Fish Oil] 850 mg PO DAILY 04/21/15 12/24/19 Vitamin E 400 unit PO DAILY 04/21/15 12/24/19 Atorvastatin [Lipitor] 20 mg PO QPM 05/30/16 12/24/19 Calcium Carbonate/Vitamin D3 1 each PO DAILY 05/30/16 12/24/19 [Calcium 500 + Vit D Caplet] Levothyroxine Sodium 137 mcg PO DAILY 05/30/16 12/24/19 Metoprolol Succinate [Toprol Xl] 100 mg PO BID 05/30/16 12/24/19 Cetirizine [ZyrTEC] 10 mg PO DAILY 09/26/16 12/24/19 Losartan [Cozaar] 50 mg PO DAILY 09/26/16 12/24/19 Pantoprazole Sodium [Protonix] 40 mg PO DAILY 12/04/17 12/24/19 Apixaban [Eliquis] 5 mg PO DAILY 12/24/19 12/24/19 - Allergies Allergies/Adverse Reactions: Allergies Allergy/AdvReac Type Severity Reaction Status Date / Time No Known Drug Allergies Allergy Verified 12/24/19 04:45 - Social History Does the pt smoke?: No Smoking Status: Never smoker Does the pt drink ETOH?: No Does the pt have substance abuse?: No - Immunizations Immunizations are current?: Yes - POLST Patient has POLST: No PD ED PE NORMAL - Vitals Vital signs reviewed: Yes (hypertensive marked diastolic ) - General General: Alert and oriented X 3, No acute distress, Well developed/nourished - HEENT HEENT: Atraumatic, PERRL, EOMI - Neck Neck: Supple, no meningeal sign, No bony TTP - Cardiac Cardiac: No murmur, Other (Irregularly irregular rate and rhythm) - Respiratory Respiratory: No respiratory distress, Clear bilaterally - Abdomen Abdomen: Normal bowel sounds, Soft, Non tender, Non distended, No organomegaly - Back Back: No CVA TTP, No spinal TTP - Derm Derm: Normal color, Warm and dry, No rash - Extremities Extremities: No deformity, No edema - Neuro Neuro: Alert and oriented X 3, oil expert 2-12 intact, No motor deficit, No sensory deficit, Normal speech Eye Opening: Spontaneous Motor: Obeys Commands Verbal: Oriented GCS Score: 15 - Psych Psych: Normal mood, Normal affect Results - Vitals Vitals: Vital Signs - 24 hr 12/24/19 12/24/19 12/24/19 04:35 05:35 06:20 Temperature 36.1 C L Heart Rate 88 83 83 Respiratory 18 16 18 Rate Blood Pressure 187/118 H 144/82 H 141/89 H O2 Saturation 99 98 98 Oxygen O2 Source Room air - EKG (time done) 0439 Rate: Rate (enter#) (86) Rhythm: Atrial fibrillation Ischemia: Non specific changes (borderline T abnormalities inferior) Compare to prior EKG: Unchanged from prior EKG (SPT 11-30-16 no changes) Computer interpretation: Agree with computer - Labs Labs: Laboratory Tests 12/24/19 12/24/19 12/24/19 04:55 04:55 04:55 WBC 5.7 RBC 4.39 Hgb 13.5 Hct 39.9 MCV 90.9 MCH 30.8 MCHC 33.8 RDW 13.1 Plt Count 254 MPV 9.4 Neut # (Auto) 3.4 Lymph # (Auto) 1.8 Titus # (Auto) 0.4 Eos # (Auto) 0.2 Baso # (Auto) 0.1 Absolute Nucleated RBC 0.00 Nucleated RBC % 0.0 Sodium 139 Potassium 3.6 Chloride 105 Carbon Dioxide 25 Anion Gap 9.0 BUN 12 Creatinine 0.6 Estimated GFR (MDRD) 101 Glucose 104 H Calcium 9.6 Total Bilirubin 0.5 AST 25 ALT 28 Alkaline Phosphatase 95 Troponin I High Sens 5.1 Total Protein 7.4 Albumin 4.2 Globulin 3.2 Albumin/Globulin Ratio 1.3 Lipase 52 H - Rads (name of study) chest Radiology: Prelim report reviewed (Impression: No active cardiopulmonary disease demonstrated.), EMP read indepedently, See rad report Procedures - IVC sono (time) 0520 Bedside IVC sono: IVC measures (cm) (0.99), IVC collapsed c insp (cm) (complete), Dehydration (est 1-2 liter deficit) PD MEDICAL DECISION MAKING - ED course Complexity details: reviewed results, re-evaluated patient, considered differential, d/w patient ED course: 64-year-old female with a history of hypertension and atrial fibrillation presents with elevated blood pressure, anxiety and left shoulder tingling. She is found to be dehydrated on interrogation of the inferior vena cava and saline is started. Her blood pressure is elevated and she has a mild headache. She does not have other symptoms or signs of malignant hypertension. Her blood pressure response to the saline and she is diagnosed with dehydration and I suspect her elevated blood pressure was reflexive hypertension. Departure - Departure Disposition: 01 Home, Self Care Clinical Impression: Dehydration Condition: Stable Instructions: ED Dehydration Follow-Up: LILI Berger [Provider Group]
[2019-12-24 05:40] LABS: ALBUMIN 4.2 g/dL (3.2-5.5); ALBUMIN/GLOBULIN RATIO 1.3 (1.0-2.2); BILIRUBIN,TOTAL 0.5 mg/dL (0.2-1.0); CALCIUM 9.6 mg/dL (8.5-10.3); CREATININE 0.6 mg/dL (0.4-1.0); TOTAL PROTEIN 7.4 g/dL (6.7-8.2)
[2019-12-24 06:20] VITALS: BP 141/89
--- NOTE | 2019-12-24 08:36 | XRAY Report ---
PROCEDURE: Chest 1 View X-Ray INDICATIONS: Chest pain TECHNIQUE: One view of the chest was acquired. COMPARISON: 12/01/2015 2 view chest x-ray. 12/01/2015 CT angiogram chest FINDINGS: Surgical changes and devices: None. Lungs and pleura: No pleural effusions or pneumothorax. Lungs are clear. Mediastinum: Mediastinal contours appear normal. Heart size is normal. Bones and chest wall: No suspicious bony lesions. Overlying soft tissues appear unremarkable. IMPRESSION: No acute cardiopulmonary disease process. Reviewed by: Edwina Alonso MD, PhD on 12/24/2019 8:34 AM PDT Approved by: Edwina Alonso MD, PhD on 12/24/2019 8:34 AM PDT Station ID: [id number]
== END 2019-12-24 06:33 | disposition home or self-care (01) ==
LOC: EDUNIT# → ED 04:35
DX: E86.0 Dehydration (principal); I48.91 Unspecified atrial fibrillation; Z79.01 Long term (current) use of anticoagulants; I10 Essential (primary) hypertension
CPT/HCPCS: 36415; 71045; 80053; 83690; 84484; 85025; 93005; 99284

== ENCOUNTER 2019-12-24 11:01 | Outpatient (CLI) | payer OTHER | END 2019-12-24 11:02 | disposition EMS.NT | LOC: EMS 11:01 | PROVIDERS: ATTEND Surgery | DX: R03.0 Elevated blood-pressure reading, without diagnosis of hypertension (principal) ==

== ENCOUNTER 2019-12-24 19:04 | Emergency (ER) | payer OTHER ==
--- NOTE | 2019-12-24 19:44 | ED Physician Documentation ---
History of Present Illness - Stated complaint Stated Complaint: HIGH BLOOD PRESSURE - Chief complaint Chief Complaint: General - History obtained from History obtained from: Patient - Additonal information Additional information: 64-year-old woman with hypertension has been running high blood pressure lately which she attributes to quitting alcohol about a week ago, some weight gain due to coronavirus and probably chronic anxiety due to the remote loss of her . She was here last night for hypertension, the work-up was negative. Subsequently called her psychiatric rn today who advised her to double her losartan from 25 mg twice daily to 50 mg twice daily. After taking the dose this evening she checked her blood pressure an hour later it was still high. She denies chest pain, trouble breathing, headache, or pedal edema. 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 - Present Medications Home Medications: Ambulatory Orders Medication Instructions Recorded Confirmed [place]-3 Fatty Acids [Fish Oil] 850 mg PO DAILY 04/21/15 12/24/19 Vitamin E 400 unit PO DAILY 04/21/15 12/24/19 Atorvastatin [Lipitor] 20 mg PO QPM 05/30/16 12/24/19 Calcium Carbonate/Vitamin D3 1 each PO DAILY 05/30/16 12/24/19 [Calcium 500 + Vit D Caplet] Levothyroxine Sodium 137 mcg PO DAILY 05/30/16 12/24/19 Metoprolol Succinate [Toprol Xl] 100 mg PO BID 05/30/16 12/24/19 Cetirizine [ZyrTEC] 10 mg PO DAILY 09/26/16 12/24/19 Losartan [Cozaar] 50 mg PO DAILY 09/26/16 12/24/19 Pantoprazole Sodium [Protonix] 40 mg PO DAILY 12/04/17 12/24/19 Apixaban [Eliquis] 5 mg PO DAILY 12/24/19 12/24/19 - Allergies Allergies/Adverse Reactions: Allergies Allergy/AdvReac Type Severity Reaction Status Date / Time No Known Drug Allergies Allergy Verified 12/24/19 19:14 - Social History Does the pt smoke?: No Smoking Status: Never smoker Does the pt drink ETOH?: No Does the pt have substance abuse?: No - Immunizations Immunizations are current?: Yes - POLST Patient has POLST: No PD ED PE NORMAL - Vitals Vital signs reviewed: Yes - General General: Alert and oriented X 3, No acute distress - HEENT HEENT: PERRL, EOMI - Neck Neck: Supple, no meningeal sign, No bony TTP - Cardiac Cardiac: RRR, No murmur - Respiratory Respiratory: No respiratory distress, Clear bilaterally - Abdomen Abdomen: Normal bowel sounds, Soft, Non tender - Back Back: No CVA TTP, No spinal TTP - Derm Derm: Normal color, Warm and dry - Extremities Extremities: No edema, No calf tenderness / cord - Neuro Neuro: Alert and oriented X 3, Normal speech Results - Vitals Vitals: Vital Signs - 24 hr 12/24/19 19:10 Temperature 36.3 C L Heart Rate 88 Respiratory 20 Rate Blood Pressure 155/104 H O2 Saturation 99 Oxygen O2 Source Room air PD MEDICAL DECISION MAKING - ED course ED course: 64-year-old woman with known hypertension has persistent hypertension only an hour after increasing her medications without signs of endorgan damage. Records reviewed from last night. Discussed with her that she probably just needs more time to let the dose change kick in. Departure - Departure Disposition: 01 Home, Self Care Clinical Impression: Essential hypertension Condition: Good Record reviewed to determine appropriate education?: Yes Instructions: ED HTN Established, ED Diet Low Salt 2Gm Comments: Continue the losartan at the dose that your psychiatric rn recommended, I would give this until Tuesday morning to check it again before considering further dose changes. Eat a low-salt diet try to exercise and lose weight. Return as needed.
[2019-12-24 19:50] VITALS: BP 153/106
== END 2019-12-24 19:51 | disposition home or self-care (01) ==
LOC: ED 19:04
DX: I10 Essential (primary) hypertension (principal); E86.0 Dehydration; I48.91 Unspecified atrial fibrillation; Z79.01 Long term (current) use of anticoagulants

== ENCOUNTER 2020-01-30 12:20 | Outpatient (CLI) | payer OTHER ==
--- NOTE | 2020-02-12 09:58 | Mammography Report ---
BILATERAL DIGITAL SCREENING MAMMOGRAM 3D/2D: 01/30/2020 CLINICAL: Routine screening. Comparison is made to exams dated: 08/03/2018 mammogram, 06/09/2017 mammogram, 12/02/2015 mammogram, 11/13/2014 mammogram, and 06/01/2013 mammogram - [facility]. Additional films were request ed but not obtained. The tissue of both breasts is predominantly fatty. There is a biopsy clip in the left breast. No significant masses, calcifications, or other findings are seen in either breast. There has been no significant interval change. IMPRESSION: NEGATIVE There is no mammographic evidence of malignancy. A 1 year screening mammogram is recommended. This exam was interpreted at Station ID: [id number]. NOTE: For mammograms, a report in lay terms will be sent to the patient. Approximately 15% of breast malignancies will not be visualized mammographically. In the management of a palpable breast mass, a negative mammogram must not discourage biopsy of a clinically suspicious lesion. Electronically Signed By: Jose Angel Cuevas M.D. [facility] [place]:02/11/2020 17:35:23 ACR BI-RADS Category 1: Negative 3341F PARENCHYMAL PATTERN: (F) - The breast(s) demonstrate(s) diffuse fatty replacement. BI-RADS CATEGORY: (1) - 1 RECOMMENDATION: (ANNUAL) - Recommend routine annual screening mammography. [id number] 1 year screening LATERALITY: (B)
== END 2020-01-30 12:21 | disposition home or self-care (01) ==
LOC: DI 12:20
DX: Z12.31 Encounter for screening mammogram for malignant neoplasm of breast (principal); Z78.9 Other specified health status
CPT/HCPCS: 77063; 77067

== ENCOUNTER 2020-05-21 18:20 | Outpatient (CLI) | payer OTHER | END 2020-05-21 23:59 | disposition home or self-care (01) | LOC: LAB.R 18:20 | PROVIDERS: ATTEND Nurse Practitioner | DX: R30.0 Dysuria (principal) | CPT/HCPCS: 87086 ==

== ENCOUNTER 2020-08-21 07:37 | Outpatient (CLI) | payer OTHER | END 2020-08-21 23:59 | disposition home or self-care (01) | LOC: LAB.R 07:37 | PROVIDERS: ATTEND Physician Assistant Medical | DX: N39.0 Urinary tract infection, site not specified (principal) | CPT/HCPCS: 87086 ==

== ENCOUNTER 2020-11-27 17:03 | Outpatient (CLI) | payer MEDICARE, OTHER ==
--- NOTE | 2020-11-27 17:29 | SLEEP CARE CONSULTATION ---
Information from patient questionnaire entered by Noel Arce. I have reviewed and concur with the information entered by Noel Arce. This document represents the service I personally performed and the decisions made by , Nasreen Nettles ARNP. History of Present Illness Service Date and Time: 11/27/2020 1703 Previous diagnosis: Moderate, Obstructive Sleep Apnea-Hypopnea Syndrome AHI: 28.2 Reason for follow up: annual (Last seen 11/2019) Equipment type: CPAP Equipment obtained from: [employer] (getting supplies as needed) Mask style: Full face Backup mask available: Yes (old mask) Last cushion change: 2 months Prior sleep studies: Yes Year and Where: 2018 & 2019 [facility] additional information: KAYLEIGH QUIGLEY was diagnosed to have moderate, AHI 28.2, obstructive sleep apnea- hypopnea syndrome and returned today for CPAP therapy annual follow-up. CPAP Compliance Data - Data Reviewed with Patient Average duration of nightly device use: 5 hours 9 mins Compliance rate %: 61.7 Current pressure setting (cmH2O): 9-15 Humidity settin Heated hose settin Average residual AHI: 3.5 Central apnea: 0.4 Obstructive apnea: 0.1 Average large leak: 30 mins 23 secs Subjective Missed days of use due to: reports: travel, other (Move) Patient concerns: reports: dry mouth, nose, throat (occasionally, 1-2 times a week). denies: aerophagia, mask discomfort, air blowing in eyes, mask leak noise, condensation in mask/hose, nasal congestion, epistaxis, other Observed to snore while using device: No Current pressure setting perceived as: comfortable On therapy, patient: reports: sleeping better, awakening more refreshed, being more awake and alert during the day, more rested overall. denies: drowsiness while driving Initial [place] Sleepiness Scale score: 6 (in 2018) Current [place] Sleepiness Scale score: 3 Allergies and Home Medications Home medication list reviewed: Yes (Losartan and Amlodipine) Review of Systems Review of systems same as previous: Yes (no changes) Physical Exam Heart Rate: 82 O2 Saturation: 96 Height: 5 ft 11 in Weight: 228 lb Body Mass Index: 31.8 BMI Classification: Obese Impression and Plan 1. Obstructive Sleep Apnea-Hypopnea Syndrome, moderate, with fair treatment compliance and good apnea control. On CPAP therapy, the patient has better sleep quality and is more rested overall. Patient went on vacation with her children and did not take her machine with her. She states it was difficult to do that and so she did not. Patient is encouraged to use CPAP with all sleep and to take her machine when she goes on vacation. She has been increasing her efforts to be compliant and her numbers do look promising. Patient states she will continue to increase time on her machine and take it when she travels. Compliance guidelines reviewed for insurance coverage. Patient was counseled on the difference between meeting compliance and optimal use of CPAP. Optimal use of CPAP is use of CPAP with all sleep to obtain maximum benefit of treatment. Patient voiced understanding and agreement with this plan of care. Patient's apnea severity and rationale for treatment to reduce apnea, improve sleep quality and reduce cardiovascular and cerebrovascular events was reviewed. I also reviewed the benefit of consistent device use of CPAP for hypertension and arrhythmia. Patient states she has gained weight due to Covid because she had to stay at home and was not very active. I advised her to try to lose weight by increasing her activity eating more healthy foods. She voiced understanding. * Continue autoCPAP pressure at 9-15 cmH2O * Notify me if snoring with mask or feeling that the pressure is too much or too little * Attempt to lose weight * Call this office if any problems using CPAP * Return for follow up in 1 year, or sooner if concerns arise Counseling Topics: Spare mask, Weight loss health impact Visit Type: In Office Time Spent with Patient (minutes): 19 Provider Statement: I spent 100% of the Face to Face Visit with the patient with greater than 50% spent counseling the patient and coordination of care.
== END 2020-11-27 17:04 | disposition home or self-care (01) ==
LOC: SC 17:03
PROVIDERS: ATTEND Nurse Practitioner Family
DX: G47.33 Obstructive sleep apnea (adult) (pediatric) (principal); E66.9 Obesity, unspecified; Z68.31 Body mass index [BMI] 31.0-31.9, adult
CPT/HCPCS: 99212; G0463

== ENCOUNTER 2021-01-04 08:00 | Outpatient (CLI) | payer MEDICARE, OTHER ==
[2021-01-04 21:18] LABS: BACTERIAL VAGINOSIS DNA NEGATIVE (NEGATIVE); CANDIDA GLABRATA DNA NEGATIVE (NEGATIVE); CANDIDA GROUP DNA NEGATIVE (NEGATIVE); CANDIDA KRUSEI DNA NEGATIVE (NEGATIVE); TRICHOMONAS VAGINALIS DNA NEGATIVE (NEGATIVE)
== END 2021-01-04 23:59 | disposition home or self-care (01) ==
LOC: LAB.N 08:00
PROVIDERS: ATTEND Physician Assistant Medical
DX: N76.0 Acute vaginitis (principal)
CPT/HCPCS: 87661; 87801

== ENCOUNTER 2021-05-01 08:15 | Outpatient (CLI) | payer MEDICARE, OTHER ==
[2021-05-01 08:47] LABS: BASOPHILS # (AUTO) 0.1 10^3/uL (0.0-0.1); BASOPHILS % (AUTO) 1.5 %; EOSINOPHILS # (AUTO) 0.2 10^3/uL (0.0-0.7); EOSINOPHILS % (AUTO) 4.2 %; HCT - HEMATOCRIT 40.7 % (37.0-47.0); HGB - HEMOGLOBIN 13.9 g/dL (12.0-16.0); LYMPHOCYTES # (AUTO) 2.4 10^3/uL (1.5-3.5); LYMPHOCYTES % (AUTO) 45.5 %; MEAN CORPUSCULAR HEMOGLOBIN 30.8 pg (27.0-31.0); MEAN CORPUSCULAR HGB CONC 34.2 g/dL (32.0-36.0); MEAN CORPUSCULAR VOLUME 90.2 fL (81.0-99.0); MEAN PLATELET VOLUME 9.1 fL (7.9-10.8); MONOCYTES # (AUTO) 0.3 10^3/uL (0.0-1.0); MONOCYTES % (AUTO) 6.3 %; NEUTROPHILS # (AUTO) 2.2 10^3/uL (1.5-6.6); NEUTROPHILS % (AUTO) 42.3 %; PLT - PLATELET COUNT 276 10^3/uL (130-450); RED BLOOD COUNT 4.51 10^6/uL (4.20-5.40); RED CELL DISTRIBUTION WIDTH 12.8 % (12.0-15.0); WHITE BLOOD COUNT 5.3 x10^3/uL (4.8-10.8)
[2021-05-01 09:10] LABS: ALBUMIN 4.2 g/dL (3.2-5.5); ALBUMIN/GLOBULIN RATIO 1.3 (1.0-2.2); ALKALINE PHOSPHATASE 96 IU/L (42-121); ALT ALANINE AMINOTRANSFERASE 19 IU/L (10-60); AST ASPARTATE AMINOTRANSFERASE 21 IU/L (10-42); BILIRUBIN,TOTAL 0.7 mg/dL (0.2-1.0); BUN - BLOOD UREA NITROGEN 14 mg/dL (6-20); CALCIUM 9.6 mg/dL (8.5-10.3); CARBON DIOXIDE - CO2 29 mmol/L (21-32); CHLORIDE 105 mmol/L (101-111); CHOL/HDL RATIO 3.1 (<4.4); CHOLESTEROL 197 mg/dL; CREATININE 0.7 mg/dL (0.4-1.0); GFR - MDRD 84 (>89); GLUCOSE 98 mg/dL (70-100); HDL CHOLESTEROL 63 mg/dL; LDL CHOLESTEROL,CALCULATED 111 mg/dL; LDL/HDL RATIO 1.8 (<4.4); POTASSIUM 4.2 mmol/L (3.5-5.0); SODIUM 142 mmol/L (135-145); TOTAL PROTEIN 7.4 g/dL (6.7-8.2); TRIGLYCERIDES 115 mg/dL; VLDL CHOLESTEROL 23 mg/dL
[2021-05-01 09:20] LABS: THYROID STIMULATING HORMONE 1.22 uIU/mL (0.34-5.60)
== END 2021-05-01 08:16 | disposition home or self-care (01) ==
LOC: LAB 08:15
PROVIDERS: ATTEND Internal Medicine Cardiovascular Disease
DX: I48.21 Permanent atrial fibrillation (principal); E03.9 Hypothyroidism, unspecified; Z79.01 Long term (current) use of anticoagulants; I10 Essential (primary) hypertension; E78.5 Hyperlipidemia, unspecified
CPT/HCPCS: 36415; 80053; 80061; 83721; 84443; 85025

== ENCOUNTER 2021-05-18 08:00 | Outpatient (CLI) | payer MEDICARE, OTHER | END 2021-05-18 23:59 | LOC: LAB 08:00 | PROVIDERS: ATTEND Physician Assistant | DX: R30.0 Dysuria (principal) | CPT/HCPCS: 87086 ==

== ENCOUNTER 2022-01-14 15:57 | Outpatient (CLI) | payer MEDICARE, OTHER ==
[2022-01-14 16:50] VITALS: BP 114/74
--- NOTE | 2022-01-14 16:51 | SLEEP CARE CONSULTATION ---
Information from patient questionnaire entered by Tamara Hardwick MA. I have reviewed and concur with the information entered by Tamara Hardwick MA. This document represents the service I personally performed and the decisions made by , Nasreen Nettles ARNP. History of Present Illness Service Date and Time: 01/14/2022 1557 Previous diagnosis: Moderate, Obstructive Sleep Apnea-Hypopnea Syndrome AHI: 28.2 Reason for follow up: annual (LAST SEEN 11/2020, ALBERTA, HERNANDEZ 01/31/2019, ) Equipment type: CPAP Equipment obtained from: [employer] (getting supplies as needed) Mask style: Full face Backup mask available: Yes (old mask) Last cushion change: 1 month Prior sleep studies: Yes Year and Where: 2017 & 2019 [facility] additional information: KAYLEIGH QUIGLEY was diagnosed to have moderate, AHI 28.2, obstructive sleep apnea- hypopnea syndrome and returned today for CPAP therapy annual follow-up. Sleep Study - Results Prior sleep studies: Yes Year and Where: 2017 & [facility] CPAP Compliance Data - Data Reviewed with Patient Average duration of nightly device use: 4 HOURS 43 MINUTES Compliance rate %: 58.9 (10/15/2021-01/12/2022; 86/90 days used) Current pressure setting (cmH2O): 9-15 Humidity settin Heated hose settin Average residual AHI: 4.7 Average large leak: 45 MINUTES Subjective Missed days of use due to: reports: travel Patient concerns: reports: air blowing in eyes, mask leak noise, dry mouth, nose, throat. denies: aerophagia, mask discomfort, condensation in mask/hose, nasal congestion, epistaxis, other Observed to snore while using device: No Current pressure setting perceived as: comfortable On therapy, patient: reports: sleeping better, awakening more refreshed, being more awake and alert during the day, more rested overall. denies: drowsiness while driving Initial [place] Sleepiness Scale score: 6 (in 2018) Current [place] Sleepiness Scale score: 6 (01/14/2022) Allergies and Home Medications Known drug allergies: No (nka) Drug allergies reviewed: Yes Home medication list reviewed: Yes (estradiol vaginal cream) Allergy and home medication list: Allergies No Known Drug Allergies Allergy (Verified 12/24/19 19:14) verified by nani avila 01/14/2022 1600 Review of Systems Review of systems same as previous: Yes (vaginal atrophy) Physical Exam Vital signs obtained and entered by: NANI STARK Blood Pressure: 114/74 (R20 P64 left) Cuff size: wrist Heart Rate: 64 O2 Saturation: 97 Height: 5 ft 11 in Weight: 230 lb 8 oz (clothes) Weight change since last visit: weight watches, has lost weight Body Mass Index: 32.1 BMI Classification: Obese Impression and Plan 1. Obstructive Sleep Apnea-Hypopnea Syndrome, moderate, with fair treatment compliance and good apnea control. On CPAP therapy, the patient has better sleep quality and is more rested overall. Patient has significant improvement of her sleep apnea and is satisfied with current CPAP therapy. She states her compliance suffers mainly because the mask is just not fitting well. She uses a fullface mask that goes above the bridge of her nose. I fitted her to a [employer] fullface hybrid mask, size medium. Patient found this comfortable and will try it out. If she likes that she will order more from her [employer]. I wrote a prescription to update her supplies. Patient's apnea severity and rationale for treatment to reduce apnea, improve sleep quality and reduce cardiovascular and cerebrovascular events was reviewed. I also reviewed the benefit of consistent device use of CPAP for hypertension and arrhythmia. 2. Obesity, unspecified. Currently patients BMI is 32.1. Obesity increases the risk of apnea, CPAP pressure requirements and overall health risks especially cardiovascular and diabetes. Thus patient is advised to lose weight. Weight loss can be done with reducing portion size, reducing refined foods and balancing content with vegetables, fruit and whole grain foods. In addition, patient encouraged to get regular exercise. * Continue auto CPAP pressure at 9-15 cmH2O * Update supplies * Patient to try [employer] full face mask, sample given * Notify me if snoring with mask or feeling that the pressure is too much or too little * Attempt to lose weight * Call this office if any problems using CPAP * Return for follow up in 1 year, or sooner if concerns arise Mask provided: Yes Counseling Topics: Spare mask, Weight loss health impact Visit Type: In Office Time Spent with Patient (minutes): 21 Provider Statement: I spent 100% of the Face to Face Visit with the patient with greater than 50% spent counseling the patient and coordination of care.
== END 2022-01-14 15:58 | disposition home or self-care (01) ==
LOC: SC 15:57
PROVIDERS: ATTEND Nurse Practitioner Family
DX: G47.33 Obstructive sleep apnea (adult) (pediatric) (principal); E66.9 Obesity, unspecified; Z68.32 Body mass index [BMI] 32.0-32.9, adult
CPT/HCPCS: 99213; G0463; 99212

== ENCOUNTER 2022-03-19 07:41 | Outpatient (CLI) | payer MEDICARE, OTHER ==
[2022-03-19 08:01] LABS: BASOPHILS # (AUTO) 0.1 10^3/uL (0.0-0.1); BASOPHILS % (AUTO) 1.2 %; EOSINOPHILS # (AUTO) 0.2 10^3/uL (0.0-0.7); EOSINOPHILS % (AUTO) 4.7 %; HCT - HEMATOCRIT 41.2 % (37.0-47.0); HGB - HEMOGLOBIN 13.8 g/dL (12.0-16.0); LYMPHOCYTES # (AUTO) 2.3 10^3/uL (1.5-3.5); LYMPHOCYTES % (AUTO) 46.2 %; MEAN CORPUSCULAR HEMOGLOBIN 30.1 pg (27.0-31.0); MEAN CORPUSCULAR HGB CONC 33.5 g/dL (32.0-36.0); MEAN PLATELET VOLUME 9.6 fL (7.9-10.8); MONOCYTES # (AUTO) 0.3 10^3/uL (0.0-1.0); MONOCYTES % (AUTO) 5.1 %; NEUTROPHILS # (AUTO) 2.2 10^3/uL (1.5-6.6); NEUTROPHILS % (AUTO) 42.8 %; PLT - PLATELET COUNT 251 10^3/uL (130-450); RED BLOOD COUNT 4.58 10^6/uL (4.20-5.40); RED CELL DISTRIBUTION WIDTH 12.7 % (12.0-15.0); WHITE BLOOD COUNT 5.1 x10^3/uL (4.8-10.8)
[2022-03-19 08:27] LABS: THYROID STIMULATING HORMONE 0.54 uIU/mL (0.34-5.60)
[2022-03-19 08:34] LABS: ALBUMIN 4.3 g/dL (3.2-5.5); ALBUMIN/GLOBULIN RATIO 1.4 (1.0-2.2); ALKALINE PHOSPHATASE 87 IU/L (42-121); ALT ALANINE AMINOTRANSFERASE 21 IU/L (10-60); AST ASPARTATE AMINOTRANSFERASE 22 IU/L (10-42); BILIRUBIN,TOTAL 0.8 mg/dL (0.2-1.0); BUN - BLOOD UREA NITROGEN 11 mg/dL (6-20); CALCIUM 9.6 mg/dL (8.5-10.3); CARBON DIOXIDE - CO2 28 mmol/L (21-32); CHLORIDE 106 mmol/L (101-111); CHOL/HDL RATIO 2.7 (<4.4); CHOLESTEROL 154 mg/dL; CREATININE 0.6 mg/dL (0.4-1.0); GFR - MDRD 100 (>89); GLUCOSE 102 mg/dL (70-100); HDL CHOLESTEROL 58 mg/dL; LDL CHOLESTEROL,CALCULATED 79 mg/dL; LDL/HDL RATIO 1.4 (<4.4); POTASSIUM 4.8 mmol/L (3.5-5.0); SODIUM 141 mmol/L (135-145); TOTAL PROTEIN 7.3 g/dL (6.7-8.2); TRIGLYCERIDES 87 mg/dL; VLDL CHOLESTEROL 17 mg/dL
[2022-03-19 09:31] LABS: FOLATE > 49.60 ng/mL (5.90 - >24.8)
[2022-03-19 10:06] LABS: CREATININE,URINE 171.1 mg/dL; MICROALBUM/CREATININE RATIO,UR 1.8 ug/mg (<30.0); MICROALBUMIN,URINE 0.3 mg/dL (0-300.0)
== END 2022-03-19 07:42 | disposition home or self-care (01) ==
LOC: LAB 07:41
PROVIDERS: ATTEND Family Medicine
DX: I10 Essential (primary) hypertension (principal); E89.0 Postprocedural hypothyroidism; I48.91 Unspecified atrial fibrillation; E78.5 Hyperlipidemia, unspecified; K31.7 Polyp of stomach and duodenum; K21.9 Gastro-esophageal reflux disease without esophagitis; E63.9 Nutritional deficiency, unspecified; K52.832 Lymphocytic colitis
CPT/HCPCS: 36415; 80053; 80061; 82043; 82306; 82570; 82607; 82746; 83721; 84443; 85025

== ENCOUNTER 2022-05-28 12:23 | Outpatient (CLI) | payer MEDICARE, OTHER ==
[2022-05-28 13:46] LABS: ESTIMATED AVERAGE GLUCOSE 114 mg/dL (70-100); HEMOGLOBIN A1c% 5.6 % (4.27-6.07)
== END 2022-05-28 12:24 | disposition home or self-care (01) ==
LOC: LAB 12:23
PROVIDERS: ATTEND Family Medicine
DX: E55.9 Vitamin D deficiency, unspecified (principal); Z79.899 Other long term (current) drug therapy; R73.01 Impaired fasting glucose
CPT/HCPCS: 36415; 82306; 83036

== ENCOUNTER 2022-10-14 07:53 | Outpatient (CLI) | payer MEDICARE, OTHER ==
[2022-10-15 04:09] LABS: HCV AB Non Reactive (Non Reactive)
== END 2022-10-14 07:54 | disposition home or self-care (01) ==
LOC: LAB 07:53
PROVIDERS: ATTEND Nurse Practitioner Family
DX: E03.9 Hypothyroidism, unspecified (principal); E55.9 Vitamin D deficiency, unspecified; Z11.59 Encounter for screening for other viral diseases
CPT/HCPCS: 36415; 82306; 84443; 86803

== ENCOUNTER 2023-01-27 15:55 | Outpatient (CLI) | payer MEDICARE, OTHER ==
--- NOTE | 2023-01-27 16:21 | Sleep Patient Instructions ---
Sleep Center Visit Summary - Patient Visit Information Reason for Visit: Annual visit for PAP therapy - Patient Instructions Additional Instructions: You will continue with CPAP therapy with pressure set at 9-15 cmH2O. A supply prescription will be updated with your DME. We encourage you to continue to try to lose weight. Please follow up with the sleep care office in 1 year. - Clinic Information Contact: [facility] [address] [place] [address] [email or web address] T: [phone]
--- NOTE | 2023-01-27 16:27 | SLEEP CARE CONSULTATION ---
Information from patient questionnaire entered by Roxana Zabala. I have reviewed and concur with the information entered by Roxana Zabala. This document represents the service I personally performed and the decisions made by me, Nasreen Nettles ARNP. History of Present Illness Service Date and Time: 01/27/2023 1555 Previous diagnosis: Moderate, Obstructive Sleep Apnea-Hypopnea Syndrome AHI: 28.2 Reason for follow up: annual (LAST SEEN 01/2022) Equipment type: CPAP (DREAMSTATION, not recertified) Equipment obtained from: [employer] (getting supplies as needed) Mask style: Full face Backup mask available: Yes (old mask) Last cushion change: 2 weeks Prior sleep studies: Yes Year and Where: 2018 & 2019 [facility] additional information: KAYLEIGH QUIGLEY was diagnosed to have moderate, AHI 28.2, obstructive sleep apnea- hypopnea syndrome and returned today for CPAP therapy annual follow-up. Sleep Study - Results Prior sleep studies: Yes Year and Where: 2017 & 2019 [facility] CPAP Compliance Data - Data Reviewed with Patient Average duration of nightly device use: 5 hours 13 minutes Compliance rate %: 57.2 (135/180 days used) Current pressure setting (cmH2O): 9-15 (avg 11, max 13) Average residual AHI: 8.2 Central apnea: 0.9 Obstructive apnea: 2.4 Hypopnea: 4.9 Average large leak: 1 hour 13 mins Subjective Missed days of use due to: reports: family emergency (mother ), illness (had Covid) Patient concerns: reports: dry mouth, nose, throat. denies: aerophagia, mask discomfort, air blowing in eyes, mask leak noise, condensation in mask/hose, nasal congestion, epistaxis Observed to snore while using device: No Current pressure setting perceived as: comfortable On therapy, patient: reports: sleeping better, awakening more refreshed, being more awake and alert during the day, more rested overall. denies: drowsiness while driving Initial [place] Sleepiness Scale score: 6 (in 2018) Current [place] Sleepiness Scale score: 5 (01/27/23) Allergies and Home Medications Known drug allergies: No Drug allergies reviewed: Yes Home medication list reviewed: Yes (no changes) Allergy and home medication list: Allergies No Known Drug Allergies Allergy (Verified 01/26/23 13:04) Home Medications Medication Instructions Recorded Confirmed Last Taken Type [place]-3 Fatty Acids [Fish Oil] 850 mg PO DAILY 04/21/15 01/27/23 12/23/19 History Vitamin E 400 unit PO DAILY 04/21/15 01/27/23 12/23/19 History Atorvastatin [Lipitor] 20 mg PO QPM 05/30/16 01/27/23 12/23/19 History Calcium Carbonate/Vitamin D3 1 each PO DAILY 05/30/16 01/27/23 12/23/19 History [Calcium 500 + Vit D Caplet] Levothyroxine Sodium 137 mcg PO DAILY 05/30/16 01/27/23 12/23/19 History Metoprolol Succinate [Toprol Xl] 100 mg PO BID 05/30/16 01/27/23 12/24/19 History Cetirizine [ZyrTEC] 10 mg PO DAILY 09/26/16 01/27/23 Unknown History Losartan [Cozaar] 50 mg PO DAILY 09/26/16 01/27/23 12/24/19 History Pantoprazole Sodium [Protonix] 40 mg PO DAILY 12/04/17 01/27/23 12/23/19 History Apixaban [Eliquis] 5 mg PO DAILY 12/24/19 01/27/23 12/23/19 History Review of Systems Review of systems same as previous: Yes (hearing loss/hear aide) Physical Exam Vital signs obtained and entered by: ROAXNA Cuello MA Blood Pressure: 146/99 (RIGHT) Cuff size: wrist Heart Rate: 75 O2 Saturation: 98 Height: 5 ft 11 in Weight: 223 lb Weight change since last visit: 7 lb loss Body Mass Index: 31.1 BMI Classification: Obese Impression and Plan 1. Obstructive Sleep Apnea-Hypopnea Syndrome, moderate, with good treatment compliance and good apnea control. On CPAP therapy, the patient has better sleep quality and is more rested overall. Patient has significant improvement of her sleep apnea although it appears slightly ineffective with elevated hypopneas. She also has an average large leak over an hour. I feel like the residual apneas is pseudo elevated. I will not make any changes today. Patient is comfortable with current pressure settings and is satisfied with current CPAP therapy. She does get some dry mouth and I encouraged her to increase the humidity on her device to reduce oral dryness. I explained to her how to do this and she voiced understanding. We will follow-up with her next year. Patient's apnea severity and rationale for treatment to reduce apnea, improve sleep quality and reduce cardiovascular and cerebrovascular events was reviewed. I also reviewed the benefit of consistent device use of CPAP for hypertension and arrhythmia. Patient has a DreamStation that has not been replaced by [employer] for the recall. Patient states she never did register her machine. She denies any black debris or upper respiratory issues. I encouraged her to call and register her device for replacement. She voiced understanding and agreement. 2. Obesity, unspecified. Currently patients BMI is 31.1. She has lost 7 pounds since last year. Obesity increases the risk of apnea, CPAP pressure requirements and overall health risks especially cardiovascular and diabetes. Thus patient is advised to lose weight. * Continue auto CPAP pressure at 9-15 cmH2O * Update supplies * Notify me if snoring with mask or feeling that the pressure is too much or too little * Continue to try to lose weight * Call this office if any problems using CPAP * Return for follow up in 1 year, or sooner if concerns arise Counseling Topics: Spare mask, Weight loss health impact Prescriptions: Device supplies Visit Type: In Office Time Spent with Patient (minutes): 25 Provider Statement: I spent 100% of the Face to Face Visit with the patient with greater than 50% spent counseling the patient and coordination of care.
[2023-01-27 16:31] VITALS: BP 146/99; O2SAT 98
== END 2023-01-27 15:56 | disposition home or self-care (01) ==
LOC: SC 15:55
PROVIDERS: ATTEND Nurse Practitioner Family
DX: G47.33 Obstructive sleep apnea (adult) (pediatric) (principal); E66.9 Obesity, unspecified; Z68.31 Body mass index [BMI] 31.0-31.9, adult
CPT/HCPCS: 99213; G0463; 99212

== ENCOUNTER 2023-09-08 17:17 | Outpatient (CLI) | payer MEDICARE, OTHER ==
--- NOTE | 2023-09-09 10:59 | CT Report ---
PROCEDURE: IAC's WO INDICATIONS: OTOSCLEROSIS OF BOTH EARS COMPARISON: None. TECHNIQUE: Noncontrast 0.6 mm thick direct axial and coronal sections acquired through each temporal bone separa tely. For radiation dose reduction, the following was used: automated exposure control, adjustment of mA and/or kV according to patient size. FINDINGS: Image quality: Excellent. RIGHT: External auditory canal: Canal has a normal appearance. Middle ear: The middle ear structures, including the ossicles and tympanic membrane, appear normal. No abnormal fluid or soft tissue density. Inner ear: Inner ear is normally formed. Findings consistent with otosclerosis involving the otic ca psule, both fenestral and retrofenestral. Facial nerve appears normal throughout is course. Mastoids: Mastoid air cells are clear. LEFT: External auditory canal: Canal has a normal appearance. Middle ear: The middle ear structures, including the ossicles and tympanic membrane, appear normal. No abnormal fluid or soft tissue density. Inner ear: Inner ear is normally formed. Findings consistent with otosclerosis with fenestral involv ement and mild retrofenestral involvement. Facial nerve appears normal throughout its course. Mastoids: Mild opacification of the inferior mastoid air cells. MISCELLANEOUS: Visualized surrounding bones appear unremarkable. Visualized intracranial structures , including the cerebellopontine angle cisterns, appear normal. 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 Reviewed by: Montrell Cardoso MD on 09/09/2023 10:57 AM PDT Approved by: Montrell Cardoso MD on 09/09/2023 10:57 AM PDT Station ID: [id number]
== END 2023-09-08 17:18 | disposition home or self-care (01) ==
LOC: DI 17:17
PROVIDERS: ATTEND Otolaryngology
DX: H80.93 Unspecified otosclerosis, bilateral (principal)

== ENCOUNTER 2023-11-29 12:48 | Outpatient (CLI) | payer MEDICARE, OTHER ==
[2023-11-29 13:38] LABS: THYROID STIMULATING HORMONE 1.01 uIU/mL (0.34-5.60)
== END 2023-11-29 12:49 | disposition home or self-care (01) ==
LOC: LAB 12:48
PROVIDERS: ATTEND Nurse Practitioner Family
DX: E03.9 Hypothyroidism, unspecified (principal)
CPT/HCPCS: 36415; 84443